=== PATIENT | male | born 1950 | race Caucasian/White ===

== ENCOUNTER → 2016-07-29 | Outpatient (CLI) | payer BC ==
[2015-02-10 09:55] VITALS: BP 121/65
[~2016-07-29] MED LIST: LISINOPRIL10 MG PO; OMEPRAZOLE D/R20 MG PO; PERCOCET 325 MG1 TA4 PO
== END ==
LOC: LAB 14:41
DX: Z00.00 Encounter for general adult medical examination without abnormal findings (principal); Z12.5 Encounter for screening for malignant neoplasm of prostate

== ENCOUNTER → 2016-10-05 | Outpatient (CLI) | payer BC ==
[2015-02-10 09:55] VITALS: BP 121/65
== END ==
LOC: RAD 10-03 13:00
DX: M54.5 Low back pain (principal); M54.16 Radiculopathy, lumbar region; M99.53 Intervertebral disc stenosis of neural canal of lumbar region

== ENCOUNTER 2016-12-01 09:30 | Outpatient (RCR) | payer BC ==
[2015-02-10 09:55] VITALS: BP 121/65
== END 2016-12-09 10:11 | disposition still patient (30) ==
LOC: PT 09:30
DX: M54.5 Low back pain (principal); M54.16 Radiculopathy, lumbar region

== ENCOUNTER → 2016-12-09 | Outpatient (CLI) | payer BC ==
[2015-02-10 09:55] VITALS: BP 121/65
== END ==
LOC: LAB 12:54
DX: R20.2 Paresthesia of skin (principal)

== ENCOUNTER → 2018-01-26 | Outpatient (CLI) | payer MEDICARE, BC ==
[~2018-01-26] VITALS: Ht 165.1 cm; Wt 57.3 kg
[~2018-01-26] MED LIST changes: +CYCLOBENZAPRINE10 M1 PO; +RANITIDINE HCL300 M2 PO
[2018-01-26 09:41] VITALS: BP 122/91
[2018-01-26 09:47] LABS: EOS # 0.2 (0.04-0.40); EOS % 4.4 % (0.0-4.0); HEMATOCRIT 41.9 % (42.0-52.0); HEMOGLOBIN 14.4 g/dL (13.5-18.0); LYMPH# 1.4 (1.50-4.00); MEAN CELL VOLUME 96 fl (78-100); MEAN CORPUSCULAR HEMOGLOBIN 33 pg (27-31); MEAN CORPUSCULAR HGB CONC 34 g/dL (33-37); MEAN PLATELET VOLUME 10.1 fl (7.4-10.4); MONO # 0.5 (0.20-0.80); NEU # 2.5 (1.40-6.50); PLATELET COUNT 201 K/mm3 (130-400); RED BLOOD COUNT 4.38 M/mm3 (4.20-5.60); WHITE BLOOD COUNT 4.6 K/mm3 (4.8-10.8)
[2018-01-26 09:54] LABS: ALBUMIN 3.9 g/dL (3.5-5.0); CALCIUM 9.2 mg/dL (8.4-10.2); POTASSIUM 3.9 mmol/L (3.6-5.0); TOTAL BILIRUBIN 0.7 mg/dL (0.2-1.3); TOTAL PROTEIN 6.4 g/dL (6.3-8.2)
[2018-01-26 11:49] LABS: ERYTHROCYTE SEDIMENTATION RATE 3 mm/hr (0-20)
[2018-01-27 01:32] LABS: TESTOSTERONE 962 ng/dL (221-716)
== END ==
LOC: AMSURD 09:04
PROVIDERS: Internal Medicine
DX: Z00.00 Encounter for general adult medical examination without abnormal findings (principal); Z12.5 Encounter for screening for malignant neoplasm of prostate; Z12.11 Encounter for screening for malignant neoplasm of colon; R73.02 Impaired glucose tolerance (oral); E78.2 Mixed hyperlipidemia; N52.9 Male erectile dysfunction, unspecified; G62.9 Polyneuropathy, unspecified; M85.80 Other specified disorders of bone density and structure, unspecified site

== ENCOUNTER → 2018-02-14 | Outpatient (CLI) | payer MEDICARE, BC ==
[2018-01-26 09:41] VITALS: BP 122/91
== END ==
LOC: LAB 14:37
DX: Z12.11 Encounter for screening for malignant neoplasm of colon (principal)

== ENCOUNTER → 2018-05-08 | Outpatient (CLI) | payer MEDICARE, BC ==
[2018-01-26 09:41] VITALS: BP 122/91
== END ==
LOC: LAB 12:01
DX: G62.9 Polyneuropathy, unspecified (principal)

== ENCOUNTER → 2018-05-09 | Outpatient (CLI) | payer MEDICARE, BC ==
[2018-01-26 09:41] VITALS: BP 122/91
== END ==
LOC: RAD 07:17
DX: M48.02 Spinal stenosis, cervical region (principal); M50.222 Other cervical disc displacement at C5-C6 level; M54.12 Radiculopathy, cervical region

== ENCOUNTER 2018-09-17 13:30 | Outpatient (RCR) | payer MEDICARE, BC ==
[2018-01-26 09:41] VITALS: BP 122/91
== END 2018-09-23 ==
LOC: PT
DX: M54.12 Radiculopathy, cervical region (principal)

== ENCOUNTER 2018-11-29 10:30 | Outpatient (RCR) | payer MEDICARE, BC ==
[2018-01-26 09:41] VITALS: BP 122/91
== END 2018-12-24 | disposition still patient (30) ==
LOC: PT
DX: M54.12 Radiculopathy, cervical region (principal)

== ENCOUNTER → 2019-03-07 | Outpatient (CLI) | payer MEDICARE, BC ==
[2018-01-26 09:41] VITALS: BP 122/91
[2019-03-07 12:53] LABS: EOS # 0.1 (0.04-0.40); EOS % 0.8 % (0.0-4.0); HEMATOCRIT 44.1 % (42.0-52.0); HEMOGLOBIN 14.5 g/dL (13.5-18.0); LYMPH# 1.4 (1.50-4.00); MEAN CELL VOLUME 94 fl (78-100); MEAN CORPUSCULAR HEMOGLOBIN 31 pg (27-31); MEAN CORPUSCULAR HGB CONC 33 g/dL (33-37); MEAN PLATELET VOLUME 9.7 fl (7.4-10.4); MONO # 0.4 (0.20-0.80); NEU # 4.3 (1.40-6.50); PLATELET COUNT 204 K/mm3 (130-400); RED BLOOD COUNT 4.67 M/mm3 (4.20-5.60); RED CELL DISTRIBUTION WIDTH 12.6 % (11.5-14.5); WHITE BLOOD COUNT 6.2 K/mm3 (4.8-10.8)
[2019-03-07 13:00] LABS: POTASSIUM 3.8 mmol/L (3.5-5.1)
[2019-03-07 13:01] LABS: ALBUMIN 4.3 g/dL (3.4-4.8)
[2019-03-07 13:02] LABS: CALCIUM 9.3 mg/dL (8.3-10.5)
[2019-03-07 13:03] LABS: TOTAL PROTEIN 6.7 g/dL (6.2-8.1)
[2019-03-07 13:05] LABS: TOTAL BILIRUBIN 0.8 mg/dL (0.2-1.2)
[2019-03-07 13:09] LABS: MAGNESIUM 2.26 mg/dL (1.60-2.60)
[2019-03-07 13:57] LABS: ERYTHROCYTE SEDIMENTATION RATE 4 mm/hr (0-20)
[2019-03-07 17:17] LABS: URINE APPEARANCE CLEAR; URINE COLOR YELLOW; URINE PROTEIN(semi-quant) TRACE mg/dL (NEGATIVE)
[2019-03-07 17:18] LABS: URINE BILIRUBIN NEGATIVE (NEGATIVE); URINE BLOOD TRACE (NEGATIVE); URINE GLUCOSE NEGATIVE (NEGATIVE); URINE KETONE NEGATIVE (NEGATIVE); URINE LEUKOCYTE ESTERASE TRACE (NEGATIVE); URINE NITRATE NEGATIVE (NEGATIVE); URINE UROBILINOGEN NORMAL (NORMAL)
== END ==
LOC: LAB 12:36
PROVIDERS: Internal Medicine
DX: Z12.5 Encounter for screening for malignant neoplasm of prostate (principal); Z12.11 Encounter for screening for malignant neoplasm of colon; I10 Essential (primary) hypertension; E78.2 Mixed hyperlipidemia; G62.9 Polyneuropathy, unspecified; R73.02 Impaired glucose tolerance (oral)

== ENCOUNTER → 2019-03-13 | Outpatient (CLI) | payer MEDICARE, BC ==
[2018-01-26 09:41] VITALS: BP 122/91
== END ==
LOC: LAB 15:45
DX: Z12.11 Encounter for screening for malignant neoplasm of colon (principal); E78.2 Mixed hyperlipidemia; R73.02 Impaired glucose tolerance (oral)

== ENCOUNTER → 2019-05-02 | Day surgery (SDC) | payer MEDICARE, BC ==
[2018-01-26 09:41] VITALS: BP 122/91
== END ==
LOC: MSO 07:02
DX: Z12.11 Encounter for screening for malignant neoplasm of colon (principal); D12.0 Benign neoplasm of cecum; K57.30 Diverticulosis of large intestine without perforation or abscess without bleeding; K64.8 Other hemorrhoids; K21.9 Gastro-esophageal reflux disease without esophagitis; F17.210 Nicotine dependence, cigarettes, uncomplicated; G47.33 Obstructive sleep apnea (adult) (pediatric); G62.9 Polyneuropathy, unspecified; Z86.010 Personal history of colon polyps
CPT/HCPCS: 00811; J2704; J7120

== ENCOUNTER → 2019-09-12 | Outpatient (CLI) | payer MEDICARE, BC ==
[2018-01-26 09:41] VITALS: BP 122/91
[2019-09-12 09:15] LABS: ALBUMIN 4.3 g/dL (3.4-4.8); POTASSIUM 3.7 mmol/L (3.5-5.1)
[2019-09-12 09:16] LABS: CALCIUM 9.2 mg/dL (8.3-10.5)
[2019-09-12 09:18] LABS: TOTAL PROTEIN 6.7 g/dL (6.2-8.1)
[2019-09-12 09:20] LABS: TOTAL BILIRUBIN 1.4 mg/dL (0.2-1.2)
[2019-09-12 09:50] LABS: HEMATOCRIT 43.6 % (42.0-52.0); HEMOGLOBIN 15.1 g/dL (13.5-18.0); MEAN CELL VOLUME 97 fl (78-100); MEAN CORPUSCULAR HEMOGLOBIN 34 pg (27-31); MEAN CORPUSCULAR HGB CONC 35 g/dL (33-37); MEAN PLATELET VOLUME 10.5 fl (7.4-10.4); PLATELET COUNT 176 K/mm3 (130-400); RED BLOOD COUNT 4.51 M/mm3 (4.20-5.60); RED CELL DISTRIBUTION WIDTH 12.5 % (11.5-14.5); WHITE BLOOD COUNT 5.1 K/mm3 (4.8-10.8)
[2019-09-12 10:57] LABS: BAND 1 % (0-10); NEUTROPHILS 50 % (42-75)
[2019-09-12 10:58] LABS: LYMPHOCYTE 32 % (20-51); MONOCYTE 16 % (3-10)
== END ==
LOC: RAD 08:50
PROVIDERS: Internal Medicine
DX: N50.89 Other specified disorders of the male genital organs (principal)

== ENCOUNTER → 2020-03-10 | Outpatient (CLI) | payer MEDICARE, BC ==
[2018-01-26 09:41] VITALS: BP 122/91
[2020-03-10 11:48] LABS: EOS # 0.1 (0.04-0.40); EOS % 0.9 % (0.0-4.0); HEMATOCRIT 44.6 % (42.0-52.0); LYMPH# 0.8 (1.50-4.00); MEAN CELL VOLUME 96 fl (78-100); MEAN CORPUSCULAR HEMOGLOBIN 32 pg (27-31); MEAN CORPUSCULAR HGB CONC 34 g/dL (33-37); MEAN PLATELET VOLUME 9.6 fl (7.4-10.4); MONO # 0.6 (0.20-0.80); NEU # 5.3 (1.40-6.50); PLATELET COUNT 198 K/mm3 (130-400); RED BLOOD COUNT 4.66 M/mm3 (4.20-5.60); RED CELL DISTRIBUTION WIDTH 12.5 % (11.5-14.5); WHITE BLOOD COUNT 6.8 K/mm3 (4.8-10.8)
[2020-03-10 12:01] LABS: ALBUMIN 4.2 g/dL (3.4-4.8)
[2020-03-10 12:02] LABS: CALCIUM 9.1 mg/dL (8.3-10.5)
[2020-03-10 12:04] LABS: TOTAL PROTEIN 6.8 g/dL (6.2-8.1)
[2020-03-10 12:06] LABS: TOTAL BILIRUBIN 0.6 mg/dL (0.2-1.2)
== END ==
LOC: LAB 11:21
PROVIDERS: Internal Medicine
DX: Z12.5 Encounter for screening for malignant neoplasm of prostate (principal); R73.03 Prediabetes; E78.2 Mixed hyperlipidemia; M85.80 Other specified disorders of bone density and structure, unspecified site; Z20.828 Contact with and (suspected) exposure to other viral communicable diseases

== ENCOUNTER → 2021-04-02 | Outpatient (CLI) | payer MEDICARE, BC ==
[2021-04-02 12:40] LABS: URINE APPEARANCE CLEAR; URINE BILIRUBIN NEGATIVE (NEGATIVE); URINE BLOOD TRACE (NEGATIVE); URINE COLOR YELLOW; URINE GLUCOSE NEGATIVE (NEGATIVE); URINE KETONE NEGATIVE (NEGATIVE); URINE LEUKOCYTE ESTERASE NEGATIVE (NEGATIVE); URINE MUCUS PRESENT (NOT PRESENT); URINE NITRATE NEGATIVE (NEGATIVE); URINE PROTEIN(semi-quant) TRACE (NEGATIVE); URINE UROBILINOGEN NORMAL (NORMAL); URINE WBC 0-1 /hpf (0-3)
== END ==
LOC: LAB 11:55
PROVIDERS: Internal Medicine
DX: Z12.5 Encounter for screening for malignant neoplasm of prostate (principal); N40.1 Benign prostatic hyperplasia with lower urinary tract symptoms

== ENCOUNTER → 2021-05-17 | Outpatient (CLI) | payer MEDICARE, BC ==
[2021-05-17 12:53] LABS: BASO # 0.01 K/mm3 (0.02-0.10); EOS # 0.09 K/mm3 (0.04-0.40); EOS % 0.8 % (0.0-4.0); HEMATOCRIT 35.8 % (42.0-52.0); HEMOGLOBIN 12.2 g/dL (13.5-18.0); LYMPH# 0.68 K/mm3 (1.50-4.00); MEAN CELL VOLUME 95 fl (78-100); MEAN CORPUSCULAR HEMOGLOBIN 32 pg (27-31); MEAN CORPUSCULAR HGB CONC 34 g/dL (33-37); MEAN PLATELET VOLUME 10.2 fl (7.4-10.4); MONO # 0.82 K/mm3 (0.20-0.80); NEU # 10.31 K/mm3 (1.40-6.50); PLATELET COUNT 177 K/mm3 (130-400); RED BLOOD COUNT 3.78 M/mm3 (4.20-5.60); RED CELL DISTRIBUTION WIDTH 12.8 % (11.5-14.5); WHITE BLOOD COUNT 11.9 K/mm3 (4.8-10.8)
[2021-05-17 14:18] LABS: PH-URINE 5.5 (5.0 - 8.0); URINE APPEARANCE HAZY; URINE COLOR YELLOW
[2021-05-17 14:19] LABS: URINE BILIRUBIN NEGATIVE (NEGATIVE); URINE BLOOD NEGATIVE (NEGATIVE); URINE GLUCOSE NEGATIVE (NEGATIVE); URINE KETONE NEGATIVE (NEGATIVE); URINE LEUKOCYTE ESTERASE TRACE (NEGATIVE); URINE NITRATE NEGATIVE (NEGATIVE); URINE PROTEIN(semi-quant) NEGATIVE (NEGATIVE); URINE UROBILINOGEN NORMAL (NORMAL)
[2021-05-17 15:38] LABS: ALBUMIN 4.1 g/dL (3.4-4.8); POTASSIUM 3.5 mmol/L (3.5-5.1)
[2021-05-17 15:39] LABS: CALCIUM 9.7 mg/dL (8.3-10.5)
[2021-05-17 15:41] LABS: TOTAL PROTEIN 7.1 g/dL (6.2-8.1)
[2021-05-17 15:43] LABS: TOTAL BILIRUBIN 0.8 mg/dL (0.2-1.2)
[2021-05-17 15:48] LABS: MAGNESIUM 2.39 mg/dL (1.60-2.60)
[2021-05-17 15:54] LABS: ERYTHROCYTE SEDIMENTATION RATE 83 mm/hr (0-20)
== END ==
LOC: LAB 11:05
PROVIDERS: Internal Medicine
DX: I10 Essential (primary) hypertension (principal); K90.9 Intestinal malabsorption, unspecified; E78.2 Mixed hyperlipidemia; I67.9 Cerebrovascular disease, unspecified; M85.80 Other specified disorders of bone density and structure, unspecified site; R73.03 Prediabetes

== ENCOUNTER → 2021-05-31 | Outpatient (CLI) | payer MEDICARE, BC ==
[2021-05-31 11:18] LABS: HEMATOCRIT 38.5 % (42.0-52.0); HEMOGLOBIN 12.8 g/dL (13.5-18.0); RED BLOOD COUNT 4.07 M/mm3 (4.20-5.60); RED CELL DISTRIBUTION WIDTH 12.4 % (11.5-14.5)
== END ==
LOC: LAB 10:48
PROVIDERS: Internal Medicine
DX: K92.89 Other specified diseases of the digestive system (principal)

== ENCOUNTER → 2021-06-03 | Day surgery (SDC) | payer MEDICARE, BC | LOC: MSO 08:16 | DX: D50.0 Iron deficiency anemia secondary to blood loss (chronic) (principal); K21.9 Gastro-esophageal reflux disease without esophagitis; K44.9 Diaphragmatic hernia without obstruction or gangrene; K22.70 Barrett's esophagus without dysplasia; Z87.891 Personal history of nicotine dependence | CPT/HCPCS: 00731; J2704; J7120 ==

== ENCOUNTER → 2021-08-30 | Outpatient (CLI) | payer MEDICARE, BC | LOC: LAB 15:47 | DX: L02.91 Cutaneous abscess, unspecified (principal) ==

== ENCOUNTER → 2021-11-08 | Outpatient (CLI) | payer MEDICARE, BC ==
[2021-11-08 14:41] LABS: BASO # 0.01 K/mm3 (0.02-0.10); EOS # 0.17 K/mm3 (0.04-0.40); EOS % 2.4 % (0.0-4.0); HEMATOCRIT 43.8 % (42.0-52.0); HEMOGLOBIN 14.9 g/dL (13.5-18.0); LYMPH# 1.84 K/mm3 (1.50-4.00); MEAN CELL VOLUME 95 fl (78-100); MEAN CORPUSCULAR HEMOGLOBIN 32 pg (27-31); MEAN CORPUSCULAR HGB CONC 34 g/dL (33-37); MEAN PLATELET VOLUME 10.1 fl (7.4-10.4); MONO # 0.47 K/mm3 (0.20-0.80); NEU # 4.57 K/mm3 (1.40-6.50); PLATELET COUNT 223 K/mm3 (130-400); RED BLOOD COUNT 4.63 M/mm3 (4.20-5.60); WHITE BLOOD COUNT 7.1 K/mm3 (4.8-10.8)
== END ==
LOC: LAB 11:27
PROVIDERS: Internal Medicine
DX: D64.9 Anemia, unspecified (principal)

== ENCOUNTER → 2021-11-25 | Outpatient (CLI) | payer MEDICARE, BC | LOC: RAD 11-22 11:45 | DX: R41.3 Other amnesia (principal); R90.82 White matter disease, unspecified | CPT/HCPCS: A9575 ==

== ENCOUNTER → 2022-05-24 | Outpatient (CLI) | payer MEDICARE, BC | LOC: LAB 13:41 | DX: F03.90 Unspecified dementia, unspecified severity, without behavioral disturbance, psychotic disturbance, mood disturbance, and anxiety (principal) ==

== ENCOUNTER 2022-12-03 19:55 | Emergency (ER) | payer MEDICARE, BC ==
[~2022-12-03] VITALS: Ht 165.1 cm; Wt 65.8 kg
[2022-12-03] MEDS ORDERED: TADALAFIL5 M1 PO (20:17)
[2022-12-03] MEDS ORDERED: VITAMIN D21250 MCG PO (20:17)
[2022-12-03] MEDS ORDERED: OMEPRAZOLE40 MG PO (20:18)
[2022-12-03 21:23] LABS: BASO # 0.03 K/mm3 (0.02-0.10); EOS # 0.33 K/mm3 (0.04-0.40); EOS % 4.5 % (0.0-4.0); HEMATOCRIT 37.4 % (42.0-52.0); HEMOGLOBIN 12.7 g/dL (13.5-18.0); LYMPH# 1.72 K/mm3 (1.50-4.00); MEAN CELL VOLUME 94 fl (78-100); MEAN CORPUSCULAR HEMOGLOBIN 32 pg (27-31); MEAN CORPUSCULAR HGB CONC 34 g/dL (33-37); MEAN PLATELET VOLUME 9.7 fl (7.4-10.4); MONO # 0.49 K/mm3 (0.20-0.80); NEU # 4.74 K/mm3 (1.40-6.50); PLATELET COUNT 161 K/mm3 (130-400); RED BLOOD COUNT 3.99 M/mm3 (4.20-5.60); RED CELL DISTRIBUTION WIDTH 12.5 % (11.5-14.5); WHITE BLOOD COUNT 7.3 K/mm3 (4.8-10.8)
[2022-12-03 21:27] LABS: ALBUMIN 3.5 g/dL (3.4-4.8); POTASSIUM 3.3 mmol/L (3.5-5.1)
[2022-12-03 21:30] LABS: TOTAL PROTEIN 5.1 g/dL (6.2-8.1)
[2022-12-03 21:31] LABS: TOTAL BILIRUBIN 0.3 mg/dL (0.2-1.2)
[2022-12-04 07:42] VITALS: BP 134/91
== END 2022-12-04 07:43 | disposition home or self-care (01) ==
LOC: ED 19:55
PROVIDERS: Family Medicine
DX: S00.03XA Contusion of scalp, initial encounter (principal); F10.129 Alcohol abuse with intoxication, unspecified; F17.200 Nicotine dependence, unspecified, uncomplicated; Y90.8 Blood alcohol level of 240 mg/100 ml or more; W18.30XA Fall on same level, unspecified, initial encounter; Y92.000 Kitchen of unspecified non-institutional (private) residence as the place of occurrence of the external cause
CPT/HCPCS: J2060; J3411; J3480; J7030

== ENCOUNTER → 2022-12-14 | Outpatient (CLI) | payer MEDICARE, BC ==
[~2022-12-14] MED LIST changes: +OMEPRAZOLE40 MG PO; +TADALAFIL5 M1 PO; +VITAMIN D21250 MCG PO
[2022-12-14 07:54] LABS: BASO # 0.02 K/mm3 (0.02-0.10); EOS % 5.5 % (0.0-4.0); HEMATOCRIT 42.4 % (42.0-52.0); HEMOGLOBIN 14.1 g/dL (13.5-18.0); LYMPH# 2.06 K/mm3 (1.50-4.00); MEAN CELL VOLUME 94 fl (78-100); MEAN CORPUSCULAR HEMOGLOBIN 31 pg (27-31); MEAN CORPUSCULAR HGB CONC 33 g/dL (33-37); MEAN PLATELET VOLUME 9.6 fl (7.4-10.4); MONO # 0.52 K/mm3 (0.20-0.80); NEU # 2.58 K/mm3 (1.40-6.50); PLATELET COUNT 190 K/mm3 (130-400); RED BLOOD COUNT 4.53 M/mm3 (4.20-5.60); RED CELL DISTRIBUTION WIDTH 12.8 % (11.5-14.5); WHITE BLOOD COUNT 5.5 K/mm3 (4.8-10.8)
[2022-12-14 07:58] LABS: POTASSIUM 4.3 mmol/L (3.5-5.1)
[2022-12-14 07:59] LABS: ALBUMIN 4.1 g/dL (3.4-4.8)
[2022-12-14 08:00] LABS: CALCIUM 9.2 mg/dL (8.3-10.5)
[2022-12-14 08:01] LABS: TOTAL PROTEIN 6.2 g/dL (6.2-8.1)
[2022-12-14 08:03] LABS: TOTAL BILIRUBIN 0.3 mg/dL (0.2-1.2)
[2022-12-14 08:08] LABS: MAGNESIUM 2.24 mg/dL (1.60-2.60)
[2022-12-14 09:50] LABS: ERYTHROCYTE SEDIMENTATION RATE 12 mm/hr (0-20)
[2022-12-14 17:12] LABS: HEPATITIS C VIRUS ANTIBODY Negative (Negative)
== END ==
LOC: LAB 07:30
PROVIDERS: Internal Medicine
DX: Z12.11 Encounter for screening for malignant neoplasm of colon (principal); Z11.59 Encounter for screening for other viral diseases; I67.9 Cerebrovascular disease, unspecified; I10 Essential (primary) hypertension; R73.03 Prediabetes; K90.9 Intestinal malabsorption, unspecified; E78.2 Mixed hyperlipidemia; E55.9 Vitamin D deficiency, unspecified

== ENCOUNTER 2022-12-28 09:09 | Emergency (ER) | payer MEDICARE, BC ==
[~2022-12-28] VITALS: Ht 170.2 cm; Wt 63.7 kg
[2022-12-28] MEDS ORDERED: DISULFIRAM250 M1 PO (09:24)
[2022-12-28 10:09] VITALS: BP 148/91
== END 2022-12-28 10:12 | disposition home or self-care (01) ==
LOC: ED 09:09
DX: S05.02XA Injury of conjunctiva and corneal abrasion without foreign body, left eye, initial encounter (principal); F17.210 Nicotine dependence, cigarettes, uncomplicated; W22.8XXA Striking against or struck by other objects, initial encounter; Y93.H2 Activity, gardening and landscaping; Y92.89 Other specified places as the place of occurrence of the external cause

== ENCOUNTER → 2023-12-29 | Outpatient (CLI) | payer MEDICARE, BC ==
[~2023-12-29] MED LIST changes: +ATARAX 10MG10 MG/TAB PO; +DISULFIRAM250 M1 PO; +FLOMAX0.4 MG PO; +PEPCID 20MG TAB20 MG PO; +PREDNISONE10 MG PO
[2023-12-29 08:25] LABS: URINE WBC 0 /hpf (0-3)
[2023-12-29 08:46] LABS: BASO # 0.02 K/mm3 (0.02-0.10); EOS % 4.1 % (0.0-4.0); HEMATOCRIT 44.8 % (42.0-52.0); LYMPH# 1.92 K/mm3 (1.50-4.00); MEAN CELL VOLUME 94 fl (78-100); MEAN CORPUSCULAR HEMOGLOBIN 32 pg (27-31); MEAN CORPUSCULAR HGB CONC 34 g/dL (33-37); MEAN PLATELET VOLUME 9.2 fl (7.4-10.4); MONO # 0.47 K/mm3 (0.20-0.80); NEU # 2.27 K/mm3 (1.40-6.50); PLATELET COUNT 173 K/mm3 (130-400); RED BLOOD COUNT 4.75 M/mm3 (4.20-5.60); RED CELL DISTRIBUTION WIDTH 12.9 % (11.5-14.5); WHITE BLOOD COUNT 4.9 K/mm3 (4.8-10.8)
[2023-12-29 08:53] LABS: ALBUMIN 4.6 g/dL (3.4-4.8)
[2023-12-29 08:54] LABS: CALCIUM 9.6 mg/dL (8.3-10.5)
[2023-12-29 08:57] LABS: TOTAL BILIRUBIN 0.4 mg/dL (0.2-1.2)
[2023-12-29 09:02] LABS: MAGNESIUM 2.44 mg/dL (1.60-2.60)
[2023-12-29 09:59] LABS: URINE APPEARANCE CLEAR (CLEAR); URINE BILIRUBIN NEGATIVE (NEGATIVE); URINE BLOOD NEGATIVE (NEGATIVE); URINE COLOR YELLOW (YELLOW); URINE GLUCOSE NEGATIVE (NEGATIVE); URINE KETONE NEGATIVE (NEGATIVE); URINE LEUKOCYTE ESTERASE NEGATIVE (NEGATIVE); URINE NITRATE NEGATIVE (NEGATIVE); URINE PROTEIN(semi-quant) NEGATIVE (NEGATIVE)
[2023-12-29 23:27] LABS: CREATININE OTHER SOURCE 88 mg/dL (47-110)
[2024-01-03 05:38] LABS: VITAMIN B1 100.7 nmol/L (())
== END ==
LOC: LAB 08:08
PROVIDERS: Internal Medicine
DX: Z12.11 Encounter for screening for malignant neoplasm of colon (principal); Z12.5 Encounter for screening for malignant neoplasm of prostate; I10 Essential (primary) hypertension; E78.2 Mixed hyperlipidemia; R73.03 Prediabetes; F52.21 Male erectile disorder; K90.9 Intestinal malabsorption, unspecified; R79.0 Abnormal level of blood mineral

== ENCOUNTER → 2024-01-01 | Outpatient (CLI) | payer MEDICARE, BC | LOC: LAB 11:36 | DX: Z12.11 Encounter for screening for malignant neoplasm of colon (principal); Z12.5 Encounter for screening for malignant neoplasm of prostate; I10 Essential (primary) hypertension; R73.03 Prediabetes; E78.2 Mixed hyperlipidemia; F52.21 Male erectile disorder; K90.9 Intestinal malabsorption, unspecified; R79.0 Abnormal level of blood mineral ==